=== PATIENT | female | born 1965 | race African-American/Black ===

== ENCOUNTER 2016-12-01 13:46 | Emergency (ER) | payer MEDICARE, MEDICAID ==
[~2016-12-01] VITALS: Ht 162.6 cm; Wt 58.1 kg
[2016-12-01 17:25] VITALS: BP 117/81
[2016-12-01] MEDS ORDERED: HYDROcodone-ACET 10/325MG TAB PO ONE (19:45)
== END 2016-12-01 21:10 | disposition home or self-care (01) ==
LOC: ER 13:46
DX: S50.01XA Contusion of right elbow, initial encounter (principal); S50.11XA Contusion of right forearm, initial encounter; M54.9 Dorsalgia, unspecified; G89.29 Other chronic pain; W18.39XA Other fall on same level, initial encounter; Y93.89 Activity, other specified; Y99.8 Other external cause status; Y92.89 Other specified places as the place of occurrence of the external cause
CPT/HCPCS: 73080; 73090

== ENCOUNTER 2025-05-12 14:29 | Emergency (ER) | payer OTHER ==
[~2025-05-12] VITALS: Ht 162.6 cm; Wt 59.1 kg
--- NOTE | 2025-05-12 15:09 | ED.PDOC ---
HPI Comments HPI: 59 y F who presents to the ED for chief complaint of high blood pressure. - pt states she was a urgent care [facility] and referred to the ED for further evaluation of elevated blood pressure - pt states she was at [facility] today and states she got her blood pressure checked and states it was elevated at 157/97 after multiple readings and told to come to urgent care for evaluation - pt states she was prescribed steroids at urgent care and referred to the ED for further evaluation - pt now in the ED, states she is having weakness, blurred vision, swelling in her legs, neck stiffness and whole body numbness - pt in the ED, is alert and oriented x 4 and no noted changes in vision, gait or speech are noted - pt in the ED, has noted BP of 158/96 but otherwise stable vitals - pt otherwise denies any other symptoms at this time Past Medical History: anxiety, depression, chronic fatigue syndrome, fibromyalgia, DDD, insomnia, Past Surgical History: unknown Social History: Denies ETOH, smoking, and drug use. Medications: unknown Allergies: amoxicillin, cephalexin GUERLINE: HTN, JOE. HPI: Poor Historian. REVIEW OF SYSTEMS: CONSTITUTIONAL: Denies acute: fever, diaphoresis, chills, HEAD: Denies acute: , photophobia Eyes: Denies acute: Double vision, vision loss, eye pain, eye discharge. EARS: Denies acute: tinnitus, hearing loss, ear discharge, ear pain, THROAT: Denies acute: sore throat, swelling, difficulty swallowing , pain with swallowing, change in voice. NECK: Denies acute: neck pain, neck swelling, stiff neck. HEART: Denies acute : chest pain, palpitations, LUNGS: Denies acute: SOB, wheezing, cough, hemoptysis ABDOMEN: Denies acute: abdominal pain, Nausea, Vomiting, diarrhea, melena , hematemesis, hematochezia SKIN: Denies acute: rash, redness, lesions, itchiness. EXTREMITIES: Denies acute: calf pain, numbness, tingling, weakness, denies pain in extremity. Denies acute: Low back pain. Neuro: Denies acute: focal neurological deficit, motor or sensory focal neurological deficit, tremors, seizure like activity, confusion, dizziness, change in mental status, loss of bowel or bladder function, cauda equina like symptoms. : Denies acute: dysuria, hematuria, flank pain, increase in urinary frequency. PSYCH: Denies acute: hallucination, suicidal ideation, homicidal ideation. FEMALE: Denies acute: abnormal vaginal bleeding, foul odor, unusual discharge. PHYSICAL EXAM: General: ----mild----acute distress, awake and alert. Head: normocephalic, atraumatic. Neck: supple, trachea is midline, no swelling. Throat: Normal phonation. Eyes:, no erythema, no purulent discharge, no proptosis, no icterus. Heart: regular rate, regular rhythm, no significant murmur appreciated. Lungs: no apparent respiratory distress, Able to speak in full sentences. No wheezing, left-sided rhonchi, no crackles. No stridors Abdomen: non tender to palpation, non distended, soft, no guarding, no rebound, + bowel sounds. Neuro: Awake, Alert, oriented to name, self, situation, follows commands GCS=15. Speech is normal. Skin: no petechia, no purpura, no cyanosis, non-pale, not jaundice. Lower extremities: --no - Pitting edema no deformity, no focal swelling, no calf TTP. Makes eye contact. moves all four extremities. Face: no apparent facial droop. Ambulating in the ED independently. PERRLA, EOM-I CN 2-12 are grossly intact, No nystagmus. No nuchal rigidity, Kernig's sign, Brudzinski's sign, no meningeal signs. ED COURSE: DISCLAIMER: This medical document was created using an electronic medical record system with voice recognition software and computerized dictation system. Although this document has been carefully reviewed, there might still be some phonetic and typographical errors. Occasional wrong-word or "sound-alike" substitutions may have occurred due to the inherent limitations of voice recognition software. These areas are purely typographical due to imperfections of the software programs and do not reflect any compromise in the patient's medical care. Please read the chart carefully and recognize, using context, where these substitutions have occurred. 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 Was a procedure done?: No CP Differential Dx Differential Diagnosis: N/A Differential Diagnosis: Other (DDX include renal disease, thyroid disease, electrolyte abnormality, increased salt intake, medications non-compliance, undiagnosed HTN, Hypertensive crisis, hypertensive urgency., drug toxicity.) Comment As far as headache: DDX include Sinusitis, migraine, meningitis, hypertension, intracranial mass/bleed, stroke, radiculopathy, vertebrobasillary insufficiency, cephalgia, pseudotumor cerebri, cerebellar ischemia/infarct, carotid stenosis, lacunar infarct, vertebral/carotid artery dissection, hydrocephalus, temporal arteritis, dura venous sinus thrombosis. X-Ray, Labs, Meds, VS Vital Signs Date Time Temp Pulse Resp B/P (MAP) Pulse Ox O2 Delivery O2 Flow Rate FiO2 05/12/25 20:41 97.8 66 16 146/103 (117) 100 97.8 05/12/25 20:24 67 166/108 05/12/25 19:26 100 Room Air* 0 21 05/12/25 19:16 159/96 05/12/25 18:53 98.3 63 14 159/96 (117) 98 98.3 05/12/25 17:00 98.0 87 150/97 (114) 98.0 05/12/25 14:33 98.1 64 18 158/96 99 98.1 Lab Test 05/12/25 16:00 05/12/25 15:48 05/12/25 14:58 Range/Units Lactic Acid Level 0.9 0.4-2.0 mmol/L Troponin I High Sensitivity 4 3 L </=34 ng/L Urine Color Light-yellow Yellow Urine Clarity Clear Clear Urine pH 5.0 5.0-9.0 Urine Specific [place] 1.010 1.001-1.035 Urine Protein Negative Negative Urine Ketones Negative Negative Urine Blood Negative Negative /uL Urine Nitrite Negative Negative Urine Bilirubin Negative Negative Urine Urobilinogen Normal Negative mg/dL Urine Leukocyte Esterase Negative Negative /uL Urine RBC <1 0 - 4 /hpf Urine Microscopic WBC < 1 0-5 /HPF Urine Squamous Epithelial Cells Few <5 /hpf Urine Bacteria None seen None Seen /hpf Urine Glucose Normal Normal mg/dL White Blood Count 7.4 4.4-10.8 10^3/uL Red Blood Count 4.27 4.0-5.20 10^6/uL Hemoglobin 14.1 12.2-16.2 g/dL Hematocrit 41.5 36.0-46.0 % Mean Corpuscular Volume 97.3 80.0-100.0 fL Mean Corpuscular Hemoglobin 33.1 H 28.0-32.0 pg Mean Corpuscular Hemoglobin Concent 34.0 32.0-36.0 g/dL Red Cell Distribution Width 15.3 H 11.8-14.3 % Platelet Count 221 140-450 10^3/uL Mean Platelet Volume 7.8 6.9-10.8 fL Neutrophils (%) (Auto) 54.9 37.0-80.0 % Lymphocytes (%) (Auto) 31.6 10.0-50.0 % Monocytes (%) (Auto) 9.4 0.0-12.0 % Eosinophils (%) (Auto) 3.7 0.0-7.0 % Basophils (%) (Auto) 0.4 0.0-2.0 % Neutrophils # (Auto) 4.1 1.6-8.6 10 ^3/uL Lymphocytes # (Auto) 2.4 0.4-5.4 10 ^3/uL Monocytes # (Auto) 0.7 0-1.3 10 ^3/uL Eosinophils # (Auto) 0.3 0-0.8 10 ^3/uL Basophils # (Auto) 0 0-0.2 10 ^3/uL Nucleated Red Blood Cells 0.1 % Sodium Level 143 136-145 mmol/L Potassium Level 4.1 3.5-5.1 mmol/L Chloride Level 113 H 98-107 mmol/L Carbon Dioxide Level 29 20-31 mmol/L Anion Gap 1 L 5-15 Blood Urea Nitrogen 9 9-23 mg/dL Creatinine 1.10 H 0.550-1.02 mg/dL Glomerular Filtration Rate Calc 59 >90 mL/min BUN/Creatinine Ratio 8.2 L 10.0-20.0 Serum Glucose 73 L 74-106 mg/dL Calcium Level 9.4 8.7-10.4 mg/dL Total Bilirubin 0.5 0.2-1.0 mg/dL Aspartate Amino Transferase (AST) 18 13-40 U/L Alanine Aminotransferase (ALT) 17 7-40 U/L Alkaline Phosphatase 69 46-116 U/L Total Protein 7.0 5.7-8.2 g/dL Albumin 4.3 3.2-4.8 g/dL [place] [id number] Ph: [phone] DIAGNOSTIC IMAGING Diagnostic Imaging Report : [id number] Signed PATIENT: PHU CUNHA ACCT: [id number] UNIT: [id number] : 1965 LOC: ER ROOM / BED: / AGE / SEX: 59 / F ADM STATUS: REG ER SERVICE 1505 ORDERING PHYSICIAN: OMEGA ZAFAR DO PROCEDURE(s): HWOCT - HEAD WITHOUT CONTRAST REASON: JOE, ORDER NUMBER(s): [id number], ACCESSION NUMBER(s): [id number] CLINICAL INFORMATION: Headache. TECHNIQUE: Axial imaging was obtained through the brain without contrast. Coronal and sagittal reformatted images were obtained, reviewed, and stored. Images were reviewed in brain and bone windows. All CT scans at this medical facility are performed using dose modulation techniques as appropriate to a performed exam including the following: Automated exposure control was utilized; adjustment of the MA and/or KV according to patient size; and use of iterative reconstruction technique. CTDIvol = 55.87 mGy DLP = 890.45 mGy-cm COMPARISON: None FINDINGS: There is no acute intracranial hemorrhage. No mass effect or midline shift. The ventricles and sulci are within normal limits in size for age. Basal cisterns are patent. The calvarium is unremarkable. Paranasal sinuses and mastoid air cells are clear. IMPRESSION: No CT evidence of acute intracranial abnormality. ATED BY: PRAKASH ÁLVAREZ DO DICTATED DATE/TIME: 05/12/25 1539 SIGNED BY: PRAKASH ÁLVAREZ DO SIGNED DATE/TIME: 05/12/25 1539 CC: [facility] [id number] [facility] [id number] Ph: [phone] DIAGNOSTIC IMAGING Diagnostic Imaging Report : [id number] Signed PATIENT: PHU CUNHA ACCT: [id number] UNIT: [id number] : 1965 LOC: ER ROOM / BED: / AGE / SEX: 59 / F ADM STATUS: REG ER SERVICE 1437 ORDERING PHYSICIAN: OMEGA ZAFAR DO PROCEDURE(s): CXRP - CHEST PORTABLE REASON: htn ORDER NUMBER(s): [id number], ACCESSION NUMBER(s): [id number] EXAM DESCRIPTION: Chest 1 View CLINICAL HISTORY: htn COMPARISON: None FINDINGS and IMPRESSION: Lines, tubes, and support devices: None. Lungs / Pleura: No consolidation. No pleural effusion. No pneumothorax. Mediastinum: Normal cardiomediastinal silhouette. Osseous structures / Soft tissues: No acute findings. ATED BY: BENI TALBERT MD DICTATED DATE/TIME: 05/12/251524 SIGNED BY: BEIN TALBERT MD SIGNED DATE/TIME: 05/12/25 152 CC: Time of 1ST Reevaluation: 18:17 (Patient does not appear to be in any distress. Patient ambulating independently. Patient is seen in the cafeteria eating food.) Reevaluation 1ST: Unchanged Patient Education/Counseling: Diagnosis, Treatment Family Education/Counseling: No Family Present Comments MDM: patient presented with the above HPI.---hypertensive crisis/headache---workup was initiated. patient was found with the above mentioned diagnosis. the following medications were ordered: please refer to order lists of meds and tests obtained by myself Dr. Zafar. Patient ED course and VS have been stabilized. Patient has been reassessed in the ED and remained in a stable condition. Pertinent incidental findings were discussed with the patient and/or family. Patient/family voices understanding and is agreeable with plan. Patient has been observed in the ED adequate length of time to insure improvement/stability. Escalation of care considered: Consideration of escalation to observation or admission Patient was given labetalol and hydralazine and nitroglycerin sublinguals for blood pressure control. Patient was given hydrocodone. Patient was DISCHARGED home in a stable condition. All the reports of any imaging studies that were ordered by myself were reviewed by myself. SEPSIS Sepsis Screen Date sepsis recognized/suspect: May 12, 2025 Time Sepsis recognized/suspect: 1433 Recent Procedure: No On Antibiotic Therapy: No Respiratory Rate >20: No Heart Rate >90: No Temp<36 C (96.8 F) or >38.3 C: No SBP <90 or MAP <65 mmHG: No New Acute Mental Status Change: No Is the patient on CPAP, BIPAP,: No Physician Orders Medical Insurance Claims Specialist (05/12/25 ) Chest Portable (05/12/25 14:37) Electrocardigram (05/12/25 14:37) Head Without Contrast (05/12/25 15:07) Vital Signs Date Time Temp Pulse Resp B/P (MAP) Pulse Ox O2 Delivery O2 Flow Rate FiO2 05/12/25 20:41 97.8 66 16 146/103 (117) 100 97.8 05/12/25 20:24 67 166/108 05/12/25 19:26 100 Room Air* 0 21 05/12/25 19:16 159/96 05/12/25 18:53 98.3 63 14 159/96 (117) 98 98.3 05/12/25 17:00 98.0 87 150/97 (114) 98.0 05/12/25 14:33 98.1 64 18 158/96 99 98.1 Laboratory Tests Test 05/12/25 14:58 05/12/25 16:00 White Blood Count 7.4 10^3/uL (4.4-10.8) Lactic Acid Level 0.9 mmol/L (0.4-2.0) Departure 1 Departure Time of Disposition: 18:14 Impression: Primary Impression: Hypertension Additional Impression: Headache Disposition: HOME / SELF CARE / HOMELESS Condition: Stable Additional Instructions: Additional instructions: Please read all instructions provided in this packet carefully. You MUST follow-up with your primary care/family doctor in 1 to 2 days. If you are unable to see your primary care/family doctor, please return to our emergency room for re-assessment and re-evaluation in 1 to 2 days. Return to the emergency room here in our facility or to the nearest ER [facility] if your symptoms change or worsen. CONSULTATIONS: you MUST Follow-up for consultation as soon as possible with: . cardiology and neurology and pain management in 1-2 days. Please call for appointment. You MUST call the consultants office yourself to make an appointment. You may need to arrange that through your insurance and/or your primary/family doctor. If you are unable to see the operational risk consultant in 1 to 2 days, you must return to our emergency room (or any other ER of your choice) for re-assessment and re- evaluation. Adequate fluid hydration. Monitor blood pressure at home at least 3 times a day. Although you have been discharged from the Emergency Department, this does not mean that you have a "clean bill of health". No definitive diagnosis for your symptoms has been made today. It is possible that you are in the process of developing a serious illness. This is why you must return to the ED without fail if any new or worsening symptoms develop. Below is a copy of your radiological report for follow up: [place] [address] Ph: [phone] DIAGNOSTIC IMAGING Diagnostic Imaging Report : [id number] Signed PATIENT: PHU CUNHA ACCT: [id number] UNIT: [id number] : 1965 LOC: ER ROOM / BED: / AGE / SEX: 59 / F ADM STATUS: REG ER SERVICE 1507 ORDERING PHYSICIAN: OMEGA ZAFAR DO PROCEDURE(s): HWOCT - HEAD WITHOUT CONTRAST REASON: JOE, ORDER NUMBER(s): [id number], ACCESSION NUMBER(s): [id number] CLINICAL INFORMATION: Headache. TECHNIQUE: Axial imaging was obtained through the brain without contrast. Coronal and sagittal reformatted images were obtained, reviewed, and stored. Images were reviewed in brain and bone windows. All CT scans at this medical facility are performed using dose modulation techniques as appropriate to a performed exam including the following: Automated exposure control was utilized; adjustment of the MA and/or KV according to patient size; and use of iterative reconstruction technique. CTDIvol = 55.87 mGy DLP = 890.45 mGy-cm COMPARISON: None FINDINGS: There is no acute intracranial hemorrhage. No mass effect or midline shift. The ventricles and sulci are within normal limits in size for age. Basal cisterns are patent. The calvarium is unremarkable. Paranasal sinuses and mastoid air cells are clear. IMPRESSION: No CT evidence of acute intracranial abnormality. ATED BY: PRAKASH ÁLVAREZ DO DICTATED DATE/TIME: 05/12/25 1539 SIGNED BY: PRAKASH ÁLVAREZ DO SIGNED DATE/TIME: 05/12/25 1539 CC: [place] [id number] Ph: [phone] DIAGNOSTIC IMAGING Diagnostic Imaging Report : [id number] Signed PATIENT: PHU CUNHA ACCT: [id number] UNIT: [id number] : 1965 LOC: ER ROOM / BED: / AGE / SEX: 59 / F ADM STATUS: REG ER SERVICE 143 ORDERING PHYSICIAN: OMEGA ZAFAR DO PROCEDURE(s): CXRP - CHEST PORTABLE REASON: htn ORDER NUMBER(s): [id number], ACCESSION NUMBER(s): [id number] EXAM DESCRIPTION: Chest 1 View CLINICAL HISTORY: htn COMPARISON: None FINDINGS and IMPRESSION: Lines, tubes, and support devices: None. Lungs / Pleura: No consolidation. No pleural effusion. No pneumothorax. Mediastinum: Normal cardiomediastinal silhouette. Osseous structures / Soft tissues: No acute findings. ATED BY: BENI TALBERT MD DICTATED DATE/TIME: 05/12/25 152 SIGNED BY: BENI TALBERT MD SIGNED DATE/TIME: 05/12/25 152 CC: Discharged With: Self Critical Care Note Critical Care Time?: Yes (35 min-critical care time only) Heart Score Heart Score: Heart Score Response (Comments) Value History Slightly Suspicious 0 EKG Normal 0 Age 45-64 1 Risk Factors No known risk factors 0 Troponin Normal limit 0 Total 1 I personally scribed for OMEGA ZAFAR DO ([email or web address]) on 05/12/25 at 15:09. Electronically submitted by Juice Brown ([facility]). I personally scribed for OMEGA ZAFAR DO ([facility]) on 05/12/25 at 15:24. Electronically submitted by Juice Brown ([facility]). I personally scribed for OMEGA ZAFAR DO ([facility]) on 05/12/25 at 15:31. Electronically submitted by Juice Brown ([facility]). I personally scribed for OMEGA ZAFAR DO ([facility]) on 05/12/25 at 18:51. Electronically submitted by Juice Brown ([facility]). OMEGA ZAFAR DO May 12, 2025 15:09
[2025-05-12 15:22] LABS: Hematocrit 41.5 % (36.0-46.0); Hemoglobin 14.1 g/dL (12.2-16.2); Mean Corpuscular Hemoglobin 33.1 pg (28.0-32.0); Mean Corpuscular Volume 97.3 fL (80.0-100.0); Nucleated Red Blood Cells % 0.1 %
--- NOTE | 2025-05-12 15:26 | DVH ---
EXAM DESCRIPTION: Chest 1 View CLINICAL HISTORY: htn COMPARISON: None FINDINGS and IMPRESSION: Lines, tubes, and support devices: None. Lungs / Pleura: No consolidation. No pleural effusion. No pneumothorax. Mediastinum: Normal cardiomediastinal silhouette. Osseous structures / Soft tissues: No acute findings.
[2025-05-12 15:36] LABS: Alanine Aminotransferase 17 U/L (7-40); Albumin 4.3 g/dL (3.2-4.8); Alkaline Phosphatase 69 U/L (46-116); Anion Gap 1 (5-15); BUN/Creatinine Ratio 8.2 (10.0-20.0); Blood Urea Nitrogen 9 mg/dL (9-23); Calcium 9.4 mg/dL (8.7-10.4); Carbon Dioxide 29 mmol/L (20-31); Potassium 4.1 mmol/L (3.5-5.1); Sodium 143 mmol/L (136-145); Total Protein 7.0 g/dL (5.7-8.2)
[2025-05-12 15:37] LABS: Bilirubin, Total 0.5 mg/dL (0.2-1.0)
[2025-05-12 15:41] LABS: Chloride 113 mmol/L (98-107); Glucose 73 mg/dL (74-106)
--- NOTE | 2025-05-12 15:42 | DVH ---
CLINICAL INFORMATION: Headache. TECHNIQUE: Axial imaging was obtained through the brain without contrast. Coronal and sagittal reform atted images were obtained, reviewed, and stored. Images were reviewed in brain and bone windows. Al l CT scans at this medical facility are performed using dose modulation techniques as appropriate to a performed exam including the following: Automated exposure control was utilized; adjustment of the MA and/or KV according to patient size; and use of iterative reconstruction technique. CTDIvol = 55.8 7 mGy DLP = 890.45 mGy-cm COMPARISON: None FINDINGS: There is no acute intracranial hemorrhage. No mass effect or midline shift. The ventricles and sulci are within normal limits in size for age. Basal cisterns are patent. The calvarium is unre markable. Paranasal sinuses and mastoid air cells are clear. IMPRESSION: No CT evidence of acute intracranial abnormality.
[2025-05-12 17:58] LABS: Urine Protein, UAD Negative (Negative)
[2025-05-12] MEDS: NITROGLYCERIN 0.4 MG SL TAB SL ONE (18:55)
[2025-05-12] MEDS: HYDROcodone-ACET 5/325MG TAB PO ONE (19:07)
[2025-05-12] MEDS: hydrALAZINE HCL 20 MG/ML VL IV ONE (19:16)
[2025-05-12 19:26] VITALS: O2SAT 100
[2025-05-12] MEDS: LABETALOL HCL 20 MG/4 ML VL IV ONE (20:24)
[2025-05-12 20:41] VITALS: BP 146/103; PULSE 66; RESP 16; TEMP 97.8; O2SAT 100
== END 2025-05-12 20:44 | disposition home or self-care (01) ==
LOC: ER 14:29
DX: I10 Essential (primary) hypertension (principal); R51.9 Headache, unspecified; Z79.899 Other long term (current) drug therapy; Z88.1 Allergy status to other antibiotic agents; Z88.0 Allergy status to penicillin
CPT/HCPCS: 36415; 70450; 71045; 80053; 81001; 83605; 84484; 85025; 96374; 96375; 99285; J0360

== ENCOUNTER 2025-06-09 08:41 | Emergency (ER) | payer OTHER ==
[~2025-06-09] VITALS: Ht 162.6 cm; Wt 62.0 kg
[2025-06-09] MEDS ORDERED: KETOROLAC TROMETH 60MG/2ML VIAL IM ONE (10:00)
[2025-06-09] MEDS: METHOCARBAMOL 500 MG TAB PO ONE (10:15)
[2025-06-09] MEDS: KETOROLAC TROMETH 30 MG/ML 1ML VIAL IV ONE (10:15)
[2025-06-09] MEDS: hydrALAZINE HCL 20 MG/ML VL IV ONE (10:16)
--- NOTE | 2025-06-09 11:47 | ED.PDOC ---
Back pain HPI HPI Comments Lala Shay Is a 59-year old female, with past medical history of fibromyalgia, thoracic outlet syndrome, complex regional pain syndrome, spinal stenosis and HTN. The patient came to the ED with chief complaint of 1 day of neck pain 03/24, that started while she was watching TV, localized on posterior area and left lateral triangle area, that irradiates up and downwards in the neck. Associated with neck muscle stiffness and restricted ROM due to pain. The patient took Tylenol and "muscle relaxants" with partial relief of her symptoms. The patient reports bilateral hand numbness and tingling sensation. Today the pain progressed and the ROM are more limited, this prompted her visit to the ED. The patient denies headache, nausea, vomit, fever or chills. Chief Complaint: Neck Pain Time Seen by MD: 08:46 Reviewed Notes: Nurses Notes, Medications, Allergies Allergies: Coded Allergies: Amoxicillin (Verified Allergy, Unknown, 05/12/25) Cephalexin (Verified Allergy, Unknown, 05/12/25) Information Source: Patient Mode of Arrival: Ambulatory Timing: Days Duration: Since onset Location of Back pain: (L) Cervical Radiates to: Anterior: Other (cervical spine) Past Medical History PAST MEDICAL HISTORY: HTN Surgical History: Surgical History (Other): Spine surgery Spinal cord stimulator. REEL FILM INSPECTOR History: No Pertinent REEL FILM INSPECTOR History Family History Family History: Reviewed,noncontributory to illness, Unknown Social History Smoker: Non-Smoker, Other (Marijuana) Alcohol: Denies ETOH Use Drugs: Marijuana Lives In: Home Constitutional: denies: chills, diaphoresis, fatigue, fever, malaise, sweats, weakness, others EENTM: denies: blurred vision, double vision, ear bleeding, ear discharge, ear drainage, ear pain, ear ringing, eye pain, eye redness, hearing loss, mouth pain, mouth swelling, nasal discharge, nose bleeding, nose congestion, nose pain, photophobia, tearing, throat pain, throat swelling, voice changes, others Respiratory: denies: cough, hemoptysis, orthopnea, SOB at rest, shortness of breath, SOB with excertion, stridor, wheezing, others Cardiovascular: denies: chest pain, dizzy spells, diaphoresis, Dyspnea on exertion, edema, irregular heart beat, left arm pain, lightheadedness, palpitations, PND, syncope, others Gastrointestinal: denies: abdomen distended, abdominal pain, blood streaked bowels, constipated, diarrhea, dysphagia, difficulty swallowing, hematemesis, melena, nausea, poor appetite, poor fluid intake, rectal bleeding, rectal pain, vomiting, others Genitourinary: denies: abnormal vagina bleeding, burning, dyspareunia, dysuria, flank pain, frequency, hematuria, incontinence, pain, , vagina discharge, urgency, others Neurological: reports: numbness (Bilateral arms and hands) Musculoskeletal: reports: muscle stiffness Integumetry: denies: bruises, change in color, change in hair/nails, dryness, laceration, lesions, lumps, rash, wounds, others Allergic/Immunocompromised: denies: Difficulty Healing, Frequent Infections, Hives, Itching, others Hematologic/Lymphatic: denies: anemia, blood clots, easy bleeding, easy bruising, swollen glands, others Endocrine: denies: excessive hunger, excessive sweating, excessive thirst, excessive urination, flushing, intolerance to cold, intolerance to heat, unexplained weight gain, unexplained weight loss, others Psychiatric: denies: anxiety, bipolar disorder, depression, hopeless, panic disorder, schizophrenia, sleepless, suicidal, others Physical Exam General Appearance: Mild Distress HEENT: Normal ENT Inspection, Pharynx Normal, TMs Normal Neck: Limited Range of Motion (Due to stifness and pain), Normal Inspection, Tender Lateral (Left), Other (Muscle is contracted and painfull) Respiratory: Chest Non-Tender, Lungs Clear, No Accessory Muscle Use, No Respiratory Distress, Normal Breath Sounds Cardiovascular: No Edema, No JVD, No Murmur, No Gallop, Normal Peripheral Pulses, Regular Rate/Rhythm Breast Exam: Deferred Gastrointestinal: No Organomegaly, Non Tender, No Pulsatile Mass, Normal Bowel Sounds, Soft Genitalia: Deferred Pelvic: Deferred Rectal: Deferred Extremities: No calf tenderness, Normal capillary refill, Normal inspection, Normal range of motion, Non-tender, No pedal edema Neurologic: Alert, shovel handle assembler II-XII nml as Tested, No Motor Deficits, Normal Affect, Normal Mood, No Sensory Deficits Cerebellar Function: Normal Reflexes: Normal Skin: Dry, Normal Color, Warm Lymphatic: No Adenopathy Was a procedure done? Was a procedure done?: No Back Pain Differential Dx Differential Diagnosis: Musculoskeletal Pain, N/A Other Differential Diagnosis #Cervical polyradiculoneuropathy #Cervical muscle spasm #spinal stenosis X-Ray, Labs, Meds, VS Vital Signs Date Time Temp Pulse Resp B/P (MAP) Pulse Ox O2 Delivery O2 Flow Rate FiO2 06/09/25 12:18 98.9 68 17 122/87 (99) 98 98.9 06/09/25 12:18 97 Room Air* 0 21 06/09/25 10:16 120/77 06/09/25 10:10 62 17 120/77 (91) 98 06/09/25 10:07 99.1 61 20 132/93 (106) 98 99.1 06/09/25 08:45 97.9 71 18 162/93 97 97.9 Current Medications Medications (Trade) Dose Ordered Sig/Frank Route Start Time Stop Time Status Last Admin Methocarbamol (Robaxin) 750 mg ONCE ONCE PO 06/09/25 10:00 06/09/25 10:01 DC 06/09/25 10:15 Ketorolac Tromethamine (Toradol Injection) 30 mg ONCE ONCE IV 06/09/25 10:15 06/09/25 10:16 DC 06/09/25 10:15 X-Ray, Labs, Meds, VS Comment The patient was re-evaluated, she report improvement after muscle relaxants and analgesics. Pain level 3/10. VS are stable. Time of 1ST Reevaluation: 11:33 Reevaluation 1ST: Improved Patient Education/Counseling: Diagnosis, Treatment, Prognosis, Need For Follow Up Family Education/Counseling: Diagnosis, Treatment, Prognosis SEPSIS Sepsis Screen Date sepsis recognized/suspect: Jun 09, 2025 Time Sepsis recognized/suspect: 0846 Recent Procedure: No On Antibiotic Therapy: No Respiratory Rate >20: No Heart Rate >90: No Temp<36 C (96.8 F) or >38.3 C: No SBP <90 or MAP <65 mmHG: No New Acute Mental Status Change: No Is the patient on CPAP, BIPAP,: No Vital Signs Date Time Temp Pulse Resp B/P (MAP) Pulse Ox O2 Delivery O2 Flow Rate FiO2 06/09/25 12:18 98.9 68 17 122/87 (99) 98 98.9 06/09/25 12:18 97 Room Air* 0 21 06/09/25 10:16 120/77 06/09/25 10:10 62 17 120/77 (91) 98 06/09/25 10:07 99.1 61 20 132/93 (106) 98 99.1 06/09/25 08:45 97.9 71 18 162/93 97 97.9 Medications Medications Dose Ordered Sig/Frank Route Start Time Stop Time Status Last Admin Dose Admin Ketorolac Tromethamine 30 mg ONCE ONCE IV 06/09/25 10:15 06/09/25 10:16 DC 06/09/25 10:15 Methocarbamol 750 mg ONCE ONCE PO 06/09/25 10:00 06/09/25 10:01 DC 06/09/25 10:15 Departure 1 Departure Time of Disposition: 11:58 Impression: Primary Impression: Hypertension Additional Impressions: Neck muscle spasm Polyradiculopathy Disposition: HOME / SELF CARE / HOMELESS Condition: Good Referrals: DANIKA VENEGAS MD Additional Instructions: Continue muscle relaxants flerexil 10mg po q8h prn for muscle spasm Warm compresses F/U with PCP in one week Referral to neurology Dr. Venegas Ibuprofen 600mg po prn (over the counter) Discharged With: Self, Spouse Comments Goals of care discussed with the patient > 35 min. Discussed plan of care with Dr. Valle Code status: Full code PCP: Dr. WELLINGTON Plan discussed with: Patient, the patient agrees with the plan. Critical Care Note Critical Care Time?: No Stability Stability form required: No Stable for transfer: N/A Unstable for transfer: N/A Heart Score Heart Score: Heart Score Response (Comments) Value History N/A 0 EKG N/A 0 Age N/A 0 Risk Factors N/A 0 Troponin N/A 0 Total 0 CORY SPARKS RESIDENT Jun 09, 2025 11:47
[2025-06-09 12:18] VITALS: BP 122/87; PULSE 68; RESP 17; TEMP 98.9; O2SAT 98
== END 2025-06-09 13:03 | disposition home or self-care (01) ==
LOC: ER 08:41
DX: I10 Essential (primary) hypertension (principal); M62.838 Other muscle spasm; G61.81 Chronic inflammatory demyelinating polyneuritis; F12.90 Cannabis use, unspecified, uncomplicated; Z88.1 Allergy status to other antibiotic agents; Z88.0 Allergy status to penicillin
CPT/HCPCS: 96374; 99283; J1885

== ENCOUNTER 2025-06-11 21:58 | Emergency (ER) | payer OTHER ==
--- NOTE | 2025-06-11 22:35 | ED.PDOC ---
History of Present Illness HPI Comments A 59 year-old female, with a Hx of HTN, presents to the ED with a chief complaint of lateral and posterior neck pain and High Blood Pressure as of X3 days ago. Patient reports going to another ED X2 days ago for the same symptoms. Patient states imaging studies were performed and she was diagnosed with a neck spasm and hypertension. Patient states she was sent home with Lisinopril 10mg daily. Patient reports taking Lisinopril X3 times daily since having it prescribed. Patient additionally states she monitors her blood pressure regularly, with last recorded BP level of 151/106, prior to todays ED arrival. Upon arrival to the ED, patients BP is 148/106. Patients vitals are stable. Raissa nick has no further complaints at this time and otherwise denies any trauma to the neck or further symptoms of chest pain, palpitations, cough, hemoptysis, N/V/D, or weakness. Patient was hypertensive at arrival. Chief Complaint: High Blood Pressure Time Seen by MD: 22:23 Reviewed Notes: Nurses Notes, Medications, Allergies Allergies: Coded Allergies: Amoxicillin (Verified Allergy, Unknown, 05/12/25) Cephalexin (Verified Allergy, Unknown, 05/12/25) Information Source: Patient, Friend Mode of Arrival: Ambulatory Severity: Moderate Timing: Days Duration: Since onset Prehospital treatment: Treatment Past Medical History PAST MEDICAL HISTORY: HTN Surgical History: CHEMIST ORGANIC History: No Pertinent CHEMIST ORGANIC History Family History Family History: Reviewed,noncontributory to illness, Unknown Social History Smoker: Non-Smoker, Other Alcohol: Denies ETOH Use Drugs: Marijuana Lives In: Home Constitutional: reports: others (High Blood Pressure ); denies: chills, diaphoresis, fatigue, fever, malaise, sweats, weakness EENTM: denies: blurred vision, double vision, ear bleeding, ear discharge, ear drainage, ear pain, ear ringing, eye pain, eye redness, hearing loss, mouth pain, mouth swelling, nasal discharge, nose bleeding, nose congestion, nose pain, photophobia, tearing, throat pain, throat swelling, voice changes, others Respiratory: denies: cough, hemoptysis, orthopnea, SOB at rest, shortness of breath, SOB with excertion, stridor, wheezing, others Cardiovascular: denies: chest pain, dizzy spells, diaphoresis, Dyspnea on exertion, edema, irregular heart beat, left arm pain, lightheadedness, palpitations, PND, syncope, others Gastrointestinal: denies: abdomen distended, abdominal pain, blood streaked bowels, constipated, diarrhea, dysphagia, difficulty swallowing, hematemesis, melena, nausea, poor appetite, poor fluid intake, rectal bleeding, rectal pain, vomiting, others Genitourinary: denies: abnormal vagina bleeding, burning, dyspareunia, dysuria, flank pain, frequency, hematuria, incontinence, pain, , vagina discharge, urgency, others Neurological: denies: dizziness, fainting, headache, left sided numbness, left sided weakness, numbness, paresthesia, pre-existing deficit, right sided numbness, right sided weakness, seizure, speech problems, tingling, tremors, weakness, others Musculoskeletal: reports: neck pain; denies: back pain, gout, joint pain, joint swelling, muscle pain, muscle stiffness, others Integumetry: denies: bruises, change in color, change in hair/nails, dryness, laceration, lesions, lumps, rash, wounds, others Allergic/Immunocompromised: denies: Difficulty Healing, Frequent Infections, Hives, Itching, others Hematologic/Lymphatic: denies: anemia, blood clots, easy bleeding, easy bruising, swollen glands, others Endocrine: denies: excessive hunger, excessive sweating, excessive thirst, excessive urination, flushing, intolerance to cold, intolerance to heat, unexplained weight gain, unexplained weight loss, others Psychiatric: denies: anxiety, bipolar disorder, depression, hopeless, panic disorder, schizophrenia, sleepless, suicidal, others All Other Systems: Reviewed and Negative Physical Exam General Appearance: Moderate Distress (Due to neck pain concerns.), Normal HEENT: Normal ENT Inspection, Pharynx Normal, TMs Normal Neck: Other (Diffuse bilateral posterior tenderness to palpation throughout the cervical spine. Moderate hypertonicity appreciated. No step-offs noted. No raccoon or smallwood signs.) Respiratory: Chest Non-Tender, Lungs Clear, No Accessory Muscle Use, No Respiratory Distress, Normal Breath Sounds Cardiovascular: No Edema, No JVD, No Murmur, No Gallop, Normal Peripheral Pulses, Regular Rate/Rhythm Breast Exam: Deferred Gastrointestinal: No Organomegaly, Non Tender, No Pulsatile Mass, Normal Bowel Sounds, Soft Genitalia: Deferred Pelvic: Deferred Rectal: Deferred Extremities: No calf tenderness, Normal capillary refill, Normal inspection, Normal range of motion, Non-tender, No pedal edema Neurologic: Alert Cerebellar Function: NOT DONE Reflexes: NOT DONE Skin: Dry, Normal Color, Warm Lymphatic: No Adenopathy Was a procedure done? Was a procedure done?: No Differential Dx Considerations may include: HTN, Neuropathy, cervical muscle spasms X-Ray, Labs, Meds, VS Vital Signs Date Time Temp Pulse Resp B/P (MAP) Pulse Ox O2 Delivery O2 Flow Rate FiO2 06/12/25 00:01 99 Room Air* 0 21 06/11/25 23:58 148/104 06/11/25 23:53 98.6 19 145/106 (119) 98.6 06/11/25 22:00 98.2 78 18 148/106 97 98.2 Lab Test 06/11/25 23:05 Range/Units White Blood Count 8.1 4.4-10.8 10^3/uL Red Blood Count 4.16 4.0-5.20 10^6/uL Hemoglobin 13.7 12.2-16.2 g/dL Hematocrit 39.3 36.0-46.0 % Mean Corpuscular Volume 94.5 80.0-100.0 fL Mean Corpuscular Hemoglobin 32.9 H 28.0-32.0 pg Mean Corpuscular Hemoglobin Concent 34.8 32.0-36.0 g/dL Red Cell Distribution Width 13.9 11.8-14.3 % Platelet Count 207 140-450 10^3/uL Mean Platelet Volume 8.2 6.9-10.8 fL Neutrophils (%) (Auto) 55.0 37.0-80.0 % Lymphocytes (%) (Auto) 31.6 10.0-50.0 % Monocytes (%) (Auto) 8.7 0.0-12.0 % Eosinophils (%) (Auto) 4.1 0.0-7.0 % Basophils (%) (Auto) 0.6 0.0-2.0 % Neutrophils # (Auto) 4.4 1.6-8.6 10 ^3/uL Lymphocytes # (Auto) 2.5 0.4-5.4 10 ^3/uL Monocytes # (Auto) 0.7 0-1.3 10 ^3/uL Eosinophils # (Auto) 0.3 0-0.8 10 ^3/uL Basophils # (Auto) 0 0-0.2 10 ^3/uL Nucleated Red Blood Cells 0.2 % Sodium Level 144 136-145 mmol/L Potassium Level 4.0 3.5-5.1 mmol/L Chloride Level 109 H 98-107 mmol/L Carbon Dioxide Level 30 20-31 mmol/L Anion Gap 5 5-15 Blood Urea Nitrogen 11 9-23 mg/dL Creatinine 1.03 H 0.550-1.02 mg/dL Glomerular Filtration Rate Calc 63 >90 mL/min BUN/Creatinine Ratio 10.7 10.0-20.0 Serum Glucose 78 74-106 mg/dL Calcium Level 10.0 8.7-10.4 mg/dL Troponin I High Sensitivity 3 L </=34 ng/L Current Medications Medications (Trade) Dose Ordered Sig/Frank Route Start Time Stop Time Status Last Admin Clonidine HCl (Catapres Tablet) 0.1 mg ONCE ONCE PO 06/11/25 22:45 06/11/25 22:47 DC 06/11/25 23:58 Dexamethasone Sodium Phosphate (Decadron Injection) 10 mg ONCE ONCE IM 06/11/25 22:45 06/11/25 22:47 DC 06/11/25 23:58 Acetaminophen/ Hydrocodone Bitart ([place] 10/325MG Tab) 1 tab ONCE ONCE PO 06/11/25 22:45 06/11/25 22:47 DC 06/11/25 22:45 X-Ray, Labs, Meds, VS Comment All studies performed the ED were evaluated by me personally. Serum studies were unremarkable for any systemic concerns related to blood pressure issues. EKG revealed a sinus rhythm with a rate of 68. [place] interval of 199 and QT interval 417. Normal EKG. Patient received medication at the ED today to assist in blood pressure reduction. Advised patient she needs to follow up with the primary care provider for discussions related to proper medication management of her what is currently poorly controlled hypertension. Advise ice packs and continued muscle relaxant therapy for her neck concerns. Images Reviewed?: Images reviewed and evaluated by me Time of 1ST Reevaluation: 01:05 Reevaluation 1ST: Improved Consultation: PCP, Cardiology Patient Education/Counseling: Diagnosis, Treatment Family Education/Counseling: Diagnosis, Treatment, No Family Present Medical Screening: No EMC Exist At This Time SEPSIS Sepsis Screen Date sepsis recognized/suspect: Jun 11, 2025 Time Sepsis recognized/suspect: 2202 Recent Procedure: No On Antibiotic Therapy: No Respiratory Rate >20: No Heart Rate >90: No Temp<36 C (96.8 F) or >38.3 C: No SBP <90 or MAP <65 mmHG: No New Acute Mental Status Change: No Is the patient on CPAP, BIPAP,: No Physician Orders Electrocardigram (06/11/25 23:02) Vital Signs Date Time Temp Pulse Resp B/P (MAP) Pulse Ox O2 Delivery O2 Flow Rate FiO2 06/12/25 00:01 99 Room Air* 0 21 06/11/25 23:58 148/104 06/11/25 23:53 98.6 19 145/106 (119) 98.6 06/11/25 22:00 98.2 78 18 148/106 97 98.2 Laboratory Tests Test 06/11/25 23:05 White Blood Count 8.1 10^3/uL (4.4-10.8) Medications Medications Dose Ordered Sig/Frank Route Start Time Stop Time Status Last Admin Dose Admin Acetaminophen/ Hydrocodone Bitart 1 tab ONCE ONCE PO 06/11/25 22:45 06/11/25 22:47 DC 06/11/25 22:45 Clonidine HCl 0.1 mg ONCE ONCE PO 06/11/25 22:45 06/11/25 22:47 DC 06/11/25 23:58 Dexamethasone Sodium Phosphate 10 mg ONCE ONCE IM 06/11/25 22:45 06/11/25 22:47 DC 06/11/25 23:58 Departure 1 Departure Time of Disposition: 01:05 Impression: Primary Impression: Hypertension Additional Impression: Cervical paraspinal muscle spasm Disposition: 01 HOME / SELF CARE / HOMELESS Condition: Stable Additional Instructions: Advise utilizing emergent medication as needed for blood pressure control. Pain medication as needed for cervical spine concerns. Patient needs to follow up with the primary care provider for discussions related to proper medication management of what is currently poorly controlled hypertension. e-Prescriptions Hydrocodone-Acetaminophen (Hydrocodone Bitartrate/AC 10-325 mg) 1 Tab Tab 1 TAB PO Q8HP PRN, #10 TAB Prov: SAQIB MCKINNON PAC 06/12/25 Clonidine Hydrochloride (Clonidine Hcl) 0.2 Mg Tab 1 TAB PO Q12HP PRN, #15 TAB 0 Refills To be used if systolic pressure is above 160 or diastolic pressure is above 90. Prov: SAQIB MCKINNON PAC 06/12/25 Discharged With: Self, Friend Critical Care Note Critical Care Time?: No Stability Stability form required: No Heart Score Heart Score: Heart Score Response (Comments) Value History Slightly Suspicious 0 EKG Normal 0 Age 45-64 1 Risk Factors 1 or 2 risk factors 1 Troponin Normal limit 0 Total 2 I personally scribed for SAQIB MCKINNON PAC ([email or web address]) on 06/11/25 at 22:35. Electronically submitted by Malika Peterson ([employer]). SAQIB MCKINNON PAC Jun 11, 2025 22:35
[2025-06-11] MEDS: HYDROcodone-ACET 10/325MG TAB PO ONE (22:45)
[2025-06-11 23:29] LABS: Potassium 4.0 mmol/L (3.5-5.1); Sodium 144 mmol/L (136-145)
[2025-06-11 23:30] LABS: Anion Gap 5 (5-15); Calcium 10.0 mg/dL (8.7-10.4); Carbon Dioxide 30 mmol/L (20-31)
[2025-06-11 23:35] LABS: BUN/Creatinine Ratio 10.7 (10.0-20.0); Blood Urea Nitrogen 11 mg/dL (9-23); Glucose 78 mg/dL (74-106)
[2025-06-11 23:44] LABS: Hematocrit 39.3 % (36.0-46.0); Hemoglobin 13.7 g/dL (12.2-16.2); Mean Corpuscular Hemoglobin 32.9 pg (28.0-32.0); Mean Corpuscular Volume 94.5 fL (80.0-100.0); Nucleated Red Blood Cells % 0.2 %
[2025-06-11 23:49] LABS: Chloride 109 mmol/L (98-107)
[2025-06-12 00:01] VITALS: O2SAT 99
[2025-06-12 00:59] VITALS: BP 156/97; PULSE 69; RESP 16; TEMP 97.6; O2SAT 98
[2025-06-12] MEDS ORDERED: HYDR-4798 PO (01:07)
[2025-06-12] MEDS ORDERED: CLON0.2T PO (01:07)
--- NOTE | 2025-06-14 06:19 | ECG ---
[facility] Test Date: 2025-06-12 Test Time: 00:54:37 Pat Name: PHU CUNHA Department: Room: Gender: F Customer Service And Sales Consultant: JIMMY : 1965 Requested By: SAQIB MCKINNON Order Number: [id number] Reading MD: Maicol Good Measurements Intervals [place] Rate: 68 P: 59 FL: 199 QRS: 72 QRSD: 106 T: 39 QT: 417 QTc: 444 Interpretive Statements Sinus rhythm Electronically Signed On 06-16-2025 22:00:42 PDT by Maicol Good Please click the below link to view image of tracing.
== END 2025-06-12 01:14 | disposition home or self-care (01) ==
LOC: ER 21:58
DX: I10 Essential (primary) hypertension (principal); M62.838 Other muscle spasm; Z88.0 Allergy status to penicillin; Z88.1 Allergy status to other antibiotic agents; Z79.899 Other long term (current) drug therapy
CPT/HCPCS: 36415; 80048; 84484; 85025; 93005; 96372; 99284; J1100